=== PATIENT | female | born 1965 | race Caucasian/White ===

== ENCOUNTER 2024-03-24 09:28 | Outpatient (CLI) | payer BC ==
[2024-03-24 11:01] LABS: #Basophils 0.05 10x3/uL (0.0-0.2); %Basophils 1.1 % (0.0-1.0); %Eosinophils 2.3 % (0.0-10.0); %Lymphocytes 33.8 % (21.0-51.0); %Monocytes 11.3 % (0.0-10.0); %Neutrophils 51.3 % (42.0-75.0); Hematocrit 41.4 % (36.0-47.0); Mean Corpuscular HGB CONC 33.8 g/dL (32.0-36.0); Mean Corpuscular Hemoglobin 34.1 pg (27.0-31.0); Mean Platelet Volume 10.6 fL (7.4-10.4); Platelet Count 469 10x3/uL (130-400); RBC Distribution Width 12.1 % (11.5-14.5)
[2024-03-24 11:24] LABS: Hemoglobin A1c 5.3 % (4.0-6.0)
[2024-03-24 11:25] LABS: ALT (SGPT) 14 U/L (8-55); AST (SGOT) 18 U/L (5-34); Albumin 3.7 g/dL (3.5-5.0); Alkaline Phosphatase 70 U/L (40-110); Anion Gap 12 mmol/L (10-20); BUN (Urea Nitrogen) 19 mg/dL (9.8-20.1); Bilirubin, Total 0.4 mg/dL (0.2-1.2); Calc. Creatinine Clearance 0 mL/min (70-130); Calcium 9.1 mg/dL (7.8-10.44); Carbon Dioxide 27 mmol/L (22-29); Chloride 101 mmol/L (98-107); Estimated GFR 80; Globulin 3.3 g/dL (2.4-3.5); Glucose 99 mg/dL (70-105); Potassium 4.1 mmol/L (3.5-5.1); Sodium 136 mmol/L (136-145)
== END 2024-03-24 09:29 | disposition home or self-care (01) ==
LOC: LABBT 09:28
PROVIDERS: ATTEND Surgery
DX: Z01.818 Encounter for other preprocedural examination (principal); K21.9 Gastro-esophageal reflux disease without esophagitis; E66.01 Morbid (severe) obesity due to excess calories
CPT/HCPCS: 71046; 80053; 83036; 85025; 93005; 93010

== ENCOUNTER 2024-03-31 07:21 | Observation (INO) | payer BC ==
[2024-03-24 09:49] VITALS: BMI 37.9
[2024-03-31] MEDS ORDERED: Rocuronium Bromide 10 MG/ML (10ML VIAL) ONE (11:54)
[2024-03-31] MEDS ORDERED: PHENYLEPHRINE-NS 100 MCG/ML 10 ML SYRINGE ONE (11:54)
[2024-03-31] MEDS ORDERED: PROPOFOL 200 MG/20 ML VIAL ONE (11:54)
[2024-03-31] MEDS ORDERED: ePHEDrine Sulfate 50 MG/10 ML VIAL ONE (11:54)
[2024-03-31] MEDS ORDERED: Lidocaine 1% PF 5 ML VIAL ONE (11:54)
[2024-03-31] MEDS ORDERED: Morphine Sulfate 2 MG/ML SYRINGE SLOW IVP PRN (13:27)
[2024-03-31] MEDS ORDERED: Ondansetron HCl/PF 4 MG/2 ML Vial IVP PRN (13:27)
[2024-03-31] MEDS ORDERED: PACU-Morphine 4MG/ML VIAL SLOW IVP PRN (13:27)
[2024-03-31] MEDS ORDERED: HYDROmorphone 2 MG/ML VIAL SLOW IVP PRN (13:27)
[2024-03-31] MEDS ORDERED: Promethazine HCl 25 MG/ML VIAL IM PRN ×2 (13:27→13:33)
[2024-03-31] MEDS ORDERED: hydrALAZINE 20 MG/ML VIAL SLOW IVP SCH (13:30)
[2024-03-31] MEDS ORDERED: Ipratropium/Albuterol 3 ML NEB NEB PRN (13:33)
[2024-03-31] MEDS ORDERED: Ondansetron PF 4 MG/2 ML Vial IVP PRN (13:33)
[2024-03-31] MEDS ORDERED: Glucagon 1 MG/ML KIT IM PRN (13:33)
[2024-03-31] MEDS ORDERED: diphenhydrAMINE 50 MG/ML VIAL IVP PRN (13:33)
[2024-03-31] MEDS ORDERED: Dextrose 50% Abboject 50 ML SYRINGE SLOW IVP PRN (13:33)
[2024-03-31] MEDS ORDERED: traMADol HCl 50 MG TAB PO PRN (13:33)
[2024-03-31] MEDS ORDERED: Dextrose 5% in Water 1,000 ML IV PRN (13:33)
[2024-03-31] MEDS ORDERED: Morphine 4 MG/ML VIAL SLOW IVP PRN (13:33)
[2024-03-31] MEDS ORDERED: hydrALAZINE 20 MG/ML VIAL SLOW IVP PRN (13:33)
[2024-03-31] MEDS ORDERED: oxyCODONE 5 MG TAB PO PRN (13:33)
[2024-03-31] MEDS ORDERED: fentaNYL 50 mcg/mL 1 mL Vial ONE (13:41)
[2024-03-31] MEDS ORDERED: hydrALAZINE 20 MG/ML VIAL ONE (13:42)
[2024-03-31] MEDS ORDERED: HYDROmorphone 0.5 MG/0.5 ML SYRINGE ONE (14:24)
[2024-03-31] MEDS: Ketorolac Tromethamine 30 MG (1 mL) VIAL IVP SCH (15:44)
[2024-03-31] MEDS: Acetaminophen 650 MG/20.3 ML UDCUP PO SCH (15:44)
[2024-03-31] MEDS: D5 1/2 NS w/20 mEq KCL 1,000 ML IV SCH (16:48)
[2024-04-01 05:20] LABS: #Basophils Less than 0.03 10x3/uL (0.0-0.2); #Eosinophils Less than 0.03 10x3/uL (0.0-0.7); %Basophils 0.1 % (0.0-1.0); %Lymphocytes 6.2 % (21.0-51.0); %Monocytes 6.1 % (0.0-10.0); %Neutrophils 87.1 % (42.0-75.0); Hematocrit 37.5 % (36.0-47.0); Hemoglobin 13.4 g/dL (12.0-16.0); Mean Corpuscular HGB CONC 35.7 g/dL (32.0-36.0); Mean Corpuscular Hemoglobin 34.2 pg (27.0-31.0); Mean Corpuscular Volume 95.7 fL (78.0-98.0); Mean Platelet Volume 10.3 fL (7.4-10.4); Platelet Count 405 10x3/uL (130-400); RBC Distribution Width 11.9 % (11.5-14.5); Red Blood Cell (RBC) Count 3.92 mill/uL (4.20-5.40)
[2024-04-01 05:26] LABS: Anion Gap 14 mmol/L (10-20); BUN (Urea Nitrogen) 20 mg/dL (9.8-20.1); Calc. Creatinine Clearance 83 mL/min (70-130); Calcium 8.5 mg/dL (7.8-10.44); Carbon Dioxide 22 mmol/L (22-29); Chloride 95 mmol/L (98-107); Estimated GFR 53; Glucose 229 mg/dL (70-105); Sodium 127 mmol/L (136-145)
[2024-04-01] MEDS: Propranolol 10 MG TAB PO SCH (07:59)
[2024-04-01] MEDS: Enoxaparin 40 MG (0.4 mL) SYRINGE SC SCH (07:59)
[2024-04-01] MEDS: Losartan 25 MG TAB PO SCH (07:59)
[2024-04-01] MEDS: Hydrochlorothiazide 25 MG TAB PO SCH (08:00)
[2024-04-01] MEDS: Amlodipine 5 MG TAB PO SCH (08:00)
[2024-04-01 08:06] VITALS: BP 118/75; TEMP 98.4
[2024-04-01] MEDS: Pantoprazole 40 MG VIAL IVP SCH (10:20)
== END 2024-04-01 11:30 | disposition home or self-care (01) ==
LOC: SDC 07:21 → SURG A 15:53
PROVIDERS: ADMIT Surgery; ATTEND Surgery
PROC: 0DB63ZZ Excision of Stomach, Percutaneous Approach (ICD-10-PCS; principal; 2024-04-01)
DX: E66.01 Morbid (severe) obesity due to excess calories (principal); K21.9 Gastro-esophageal reflux disease without esophagitis; F41.9 Anxiety disorder, unspecified; F32.A Depression, unspecified; I10 Essential (primary) hypertension; G43.909 Migraine, unspecified, not intractable, without status migrainosus; Z79.899 Other long term (current) drug therapy; Z68.38 Body mass index [BMI] 38.0-38.9, adult; Z98.890 Other specified postprocedural states
CPT/HCPCS: 36415; 80048; 85025; 88307; J0360; J1650; J1885; J2470; J2704; J3010; J3480; S2900

== ENCOUNTER 2024-04-06 11:41 | Day surgery (SDC) | payer BC ==
[2024-04-06] MEDS: Sodium Chloride 0.9% 1,000 ML IV SCH (11:55)
[2024-04-06] MEDS ORDERED: Ondansetron PF 4 MG/2 ML Vial ONE (12:07)
[2024-04-06] MEDS: Ondansetron PF 4 MG/2 ML Vial IVP PRN (12:25)
[2024-04-06] MEDS: Multivitamins, Adult 10 ML, Thiamine HCl 100 MG in Sodium Chloride 0.9% 1,000 ML IV SCH (13:00)
[2024-04-06 14:32] VITALS: BP 108/52; TEMP 97.5
== END 2024-04-06 16:08 | disposition home or self-care (01) ==
LOC: ONC/OP 11:41
PROVIDERS: ATTEND Surgery
DX: E86.0 Dehydration (principal)
CPT/HCPCS: 96360; 96367; J2405; J3411; J7030

== ENCOUNTER 2024-04-07 12:04 | Day surgery (SDC) | payer BC ==
[2024-04-07] MEDS ORDERED: Ondansetron PF 4 MG/2 ML Vial IVP PRN (12:44)
[2024-04-07] MEDS: Sodium Chloride 0.9% 500 ML IV SCH (12:45)
[2024-04-07] MEDS: Multivitamins, Adult 10 ML, Thiamine HCl 100 MG in Sodium Chloride 0.9% 1,000 ML IV SCH (13:29)
[2024-04-07 16:46] VITALS: BP 113/59; TEMP 97.8
[2024-04-07 16:54] LABS: #Basophils 0.03 10x3/uL (0.0-0.2); %Basophils 0.6 % (0.0-1.0); %Eosinophils 2.4 % (0.0-10.0); %Lymphocytes 26.4 % (21.0-51.0); %Monocytes 9.1 % (0.0-10.0); %Neutrophils 61.1 % (42.0-75.0); Hematocrit 35.8 % (36.0-47.0); Hemoglobin 12.6 g/dL (12.0-16.0); Mean Corpuscular HGB CONC 35.2 g/dL (32.0-36.0); Mean Corpuscular Hemoglobin 34.3 pg (27.0-31.0); Mean Corpuscular Volume 97.5 fL (78.0-98.0); Mean Platelet Volume 9.3 fL (7.4-10.4); Platelet Count 362 10x3/uL (130-400); RBC Distribution Width 11.7 % (11.5-14.5); Red Blood Cell (RBC) Count 3.67 mill/uL (4.20-5.40)
[2024-04-07 16:59] LABS: Bacteria/HPF 2+ HPF (None Seen); Bilirubin Negative (Negative); Blood, Urine Negative (Negative); Clarity Clear (Clear); Glucose, Urine (Dipstick) Normal (Negative); Ketone, Urine 80 mg/dL (Negative); Leukocyte Negative Leu/uL (Negative); Nitrite Negative (Negative); Protein, Urine (Dipstick) Negative (Neg-Trace); RBC/HPF 0-3 HPF (0-3); Specific Gravity, Urine 1.004 (1.002-1.036); Urobilinogen Normal mg/dL (Less than 2); WBC/HPF 0-3 HPF (0-3)
[2024-04-07 17:09] LABS: Anion Gap 15 mmol/L (10-20); BUN (Urea Nitrogen) 9 mg/dL (9.8-20.1); Calc. Creatinine Clearance 0 mL/min (70-130); Carbon Dioxide 24 mmol/L (22-29); Chloride 101 mmol/L (98-107); Estimated GFR 100; Glucose 64 mg/dL (70-105); Potassium 3.4 mmol/L (3.5-5.1); Sodium 137 mmol/L (136-145)
== END 2024-04-07 16:55 | disposition home or self-care (01) ==
LOC: ONC/OP 12:04
PROVIDERS: ATTEND Surgery
DX: E86.0 Dehydration (principal)
CPT/HCPCS: 80048; 81001; 85025; 96365; 96366; J3411; J7030